=== PATIENT | male | born 1995 | race Two or more races ===

== ENCOUNTER 2024-05-29 20:49 | Emergency (ER) | payer OTHER ==
[~2024-05-29] VITALS: Ht 175.3 cm; Wt 81.6 kg
[2024-05-29 22:10] LABS: HEMOGLOBIN 15.2 g/dL (13-16.00); MEAN CELL VOLUME 86.4 fL (80.0-100.00); MEAN CORPUSCULAR HEMOGLOBIN 30.5 pg (27.00-32.0); MEAN CORPUSCULAR HGB CONC 35.3 g/dl (32.0-36.0); PLATELET COUNT 236 K/uL (150-450); RED BLOOD COUNT 4.97 M/uL (4.00-6.00); RED CELL DISTRIBUTION WIDTH 12.9 % (11.5-14.5)
[2024-05-29 22:53] LABS: CREATININE SERUM 0.98 mg/dL (0.70-1.30); GFR 91.75; POTASSIUM 3.64 mEq/L (3.5-5.1)
[2024-05-29 23:08] LABS: URINE APPEARANCE Clear; URINE BILIRRUBIN Negative (NEGATIVE); URINE BLOOD Negative; URINE COLOR Yellow; URINE GLUCOSE Negative (NEGATIVE); URINE KETONE Negative (NEGATIVE); URINE LEUKOCYTE Negative; URINE NITRATE Negative; URINE PROTEIN Negative (NEGATIVE)
[2024-05-29 23:12] LABS: URINE BACTERIA 30.2 uL (0.0-1933); URINE EPITHELIAL CELLS 3.2 uL (0.0-38.8); URINE RBC 2.2 uL (0.0-20.8); URINE WBC 4.4 uL (0.0-23.2)
[2024-05-29 23:19] LABS: URINE CAST 0.15 uL (0.0-1.40)
== END 2024-05-29 23:43 | disposition home or self-care (01) ==
LOC: ER 20:50
PROVIDERS: General Practice
DX: I86.1 Scrotal varices (principal); N50.819 Testicular pain, unspecified

== ENCOUNTER 2024-11-24 12:34 | Emergency (ER) | payer OTHER ==
[~2024-11-24] VITALS: Ht 175.3 cm; Wt 83.9 kg
[2024-11-24] MEDS ORDERED: FAMOTIDINE/PF 20 MG/2 ML VIAL IV PUSH STA (16:47)
== END 2024-11-24 18:30 | disposition home or self-care (01) ==
LOC: ER 12:36
DX: K29.70 Gastritis, unspecified, without bleeding (principal); R07.89 Other chest pain